=== PATIENT | female | born 1945 | race African-American/Black ===

== ENCOUNTER 2020-10-22 02:31 | Emergency (ER) | payer MEDICARE, MEDICAID ==
[~2020-10-22] VITALS: Ht 170.2 cm; Wt 75.0 kg
[2020-10-22] MEDS ORDERED: ONDANSETRON HCL 4MG/2ML INJ IV STA (03:01)
[2020-10-22] MEDS ORDERED: MORPHINE SULFATE 4 MG/ML CPJ (NOT FOR IM USE) IV STA (03:01)
[2020-10-22] MEDS ORDERED: ENALAPRIL 2.5MG/2ML VIAL 2ML IV ONE (03:15)
[2020-10-22 03:19] LABS: BASOPHILS % 1.4 % (0.0-2.0); EOSINOPHILS % 4.6 % (0.0-5.0); HEMATOCRIT. 40.7 % (36.0-48.0); HEMOGLOBIN. 13.8 g/dL (12.0-16.0); LYMPHOCYTES % 32.8 % (20.0-50.0); MEAN CORPUSCULAR HEMOGLOBIN 32.7 pg (28.0-32.0); MEAN CORPUSCULAR VOLUME 96.1 fL (81.0-99.0); MEAN PLATELET VOLUME 7.6 fl (7.4-10.4); MONOCYTES % 8.4 % (2.0-8.0); NEUTROPHILS % 52.8 % (40.0-76.0); PLATELET 225 x1000/uL (130-400); RED BLOOD CELL COUNT 4.23 mill/uL (4.2-5.4); RED CELL DISTRIBUTION WIDTH 13.4 % (11.6-14.6)
[2020-10-22 03:27] LABS: CHLORIDE 112 mEq/L (98-107)
[2020-10-22] MEDS ORDERED: CLONIDINE 0.2MG TABLET PO ONE (03:30)
[2020-10-22] MEDS ORDERED: ENALAPRIL 1.25MG/ML VIAL 1ML IV SCH (05:00)
[2020-10-22 05:53] VITALS: BP 168/100
== END 2020-10-22 06:27 | disposition home or self-care (01) ==
LOC: ER 02:31
DX: I10 Essential (primary) hypertension (principal); G44.209 Tension-type headache, unspecified, not intractable
CPT/HCPCS: 36415; 70450; 71045; 80053; 85025; 96374; 99291; J2405; J3490